=== PATIENT | female | born 1955 | race Caucasian/White ===

== ENCOUNTER 2020-10-04 16:33 | Inpatient (IN) | payer MEDICARE, OTHER ==
[2020-10-04] MEDS ORDERED: PROTONIX 40 MG IV IV ONE ×2 (18:11→18:16)
[2020-10-04] MEDS ORDERED: Sodium Chloride 0.9% 1000 ML 1,000 ML IV SCH (18:15)
[2020-10-04] MEDS ORDERED: Sodium Chloride 0.9% 1000 ML 1,000 ML ONE (18:16)
[2020-10-04 18:40] LABS: Absolute Neutrophil Ct (ANC) 4.37 (1.4-6.9); BASOPHIL % 0.4 % (0.0-0.4); Basophil (Absolute #) 0.03 (0-0.4); Eosinophil % 5.9 % (0.00-5.0); Eosinophil (Absolute #) 0.42 (0-0.5); Hematocrit 23.5 % (35-47); Hemoglobin 8.1 gm/dl (12.0-16.0); Lymphocyte (Absolute #) 2.02 (1.0-4.6); Lymphocytes % 28.3 % (24.0-44.0); Mean Corpuscular Hemoglobin 43.1 pg (26-32); Mean Corpuscular Hgb Concent. 34.5 g/dl (32-36); Mean Platelet Volume 10.5 fl (7.5-11.0); Monocyte (Absolute #) 0.29 (0.0-1.3); Monocytes % 4.1 % (0.0-12.0); Neutrophil % 61.3 % (36.0-66.0); Platelet Count 247 K/mm3 (150-450); Red Cell Distribution Width 16.8 % (11.5-14.0); White Blood Count 7.1 K/mm3 (4.0-10.5)
[2020-10-04 18:46] LABS: INR 1.17 (0.8-3.0); PROTIME 13.2 SECONDS (9.95-12.35); Red Blood Count 1.88 M/mm3 (4.1-5.4)
[2020-10-04 18:49] LABS: PTT 26.2 SECONDS (25.3-37.0)
--- NOTE | 2020-10-04 19:20 | ERPHSYRPT ---
- History of Present Illness Time Seen by Provider: 10/04/20 16:35 Source: patient Exam Limitations: no limitations Patient Subjective Stated Complaint: "I was told my blood levels are too low and that I need to go to the ER." Triage Nursing Assessment: Patient reported that she has been experiencing ongoing fatigue and "just not feeling well at all." Reported that she had labs drawn today and that she was told to immediately come to the ER due to low blood levels. Denied headache, dizziness, chest pain, shortness of breath, nausea/vomiting. She did report that she has intermittent diarreha which has been ongoing over the past year. Denied black/tarry stools. Pupils 3mm bilateral. Oral mucosa pink/moist. Symmetrical chest expansion. Heart tones S1/S2 regular rate and rhythm. Lungs vesicular with adequate airflow. Abdomen obese non-distended. Bowel sounds present in all quadrants. Abdomen non-tender without hepatosplenomegaly. No noted guarding/rebound tenderness. Peripheral pulses +2 bilateral. No noted dependent edema. Physician History: 65 years old female with history of hypertension, hypothyroidism, arthritis presented in the ER with low hemoglobin found on work-up done outpatient today. Patient reports she has been having generalized weakness fatigue and tiredness with no energy to do her routine activities for the last 2 weeks. Patient report occasionally she feels dizzy lightheaded and sometimes chest pain shortness of breath. Symptoms get better with resting. Reports having epigastric discomfort couple of weeks ago before all this started but denies any dark-colored stool. Denies history of acid reflux. Not taking any blood thinner. No vomiting but has loose stool for the last couple days but no blood in it. Timing/Duration: week(s) (2), gradual onset, worse Severity: moderate Modifying Factors: Improves With: rest. Worsens With: movement Associated Symptoms: abdominal pain, chest pain, headaches, weakness, other Allergies/Adverse Reactions: No Known Drug Allergies Allergy (Unverified 10/04/20 17:30) Home Medications: Aspirin 1 tab PO DAILY 10/04/20 [History] Biotin 1 tab PO DAILY 10/04/20 [History] Levothyroxine Sodium [Euthyrox] 1 tab PO DAILY 10/04/20 [History] Lisinopril/Hydrochlorothiazide [Lisinopril-Hctz 20-25 mg Tab] 1 tab PO DAILY 10/04/20 [History] Meloxicam 1 tab PO DAILY 10/04/20 [History] Hx Tetanus, Diphtheria Vaccination/Date Given: No Hx Influenza Vaccination/Date Given: Yes Hx Pneumococcal Vaccination/Date Given: No Travel Risk - International Travel Have you traveled outside of the country in past 3 weeks: No - Coronavirus Screening Are you exhibiting any of the following symptoms?: No Close contact with a COVID-19 positive Pt in past 14-21 Days: No - Vaccine Status Have you recieved a Covid-19 vaccination: Yes 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: [id number] - Vaccination Dates Date of 2cond Vaccination (if applicable): 07/17/20 - Review of Systems Constitutional: Fatigue Eyes: No Symptoms Ears, Nose, & Throat: No Symptoms Respiratory: Dyspnea Cardiac: Chest Pain, Palpitations Abdominal/Gastrointestinal: Abdominal Pain, Diarrhea Genitourinary Symptoms: No Symptoms Musculoskeletal: Arthralgias, Joint Pain Skin: No Symptoms Neurological: Dizziness Psychological: No Symptoms Endocrine: No Symptoms Hematologic/Lymphatic: No Symptoms Immunological/Allergic: No Symptoms All Other Systems: Reviewed and Negative - Past Medical History Pertinent Past Medical History: Yes Cardiac History: Hypertension Endocrine Medical History: Hypothyroidism Musculoskeletal History: Osteoarthritis - Past Surgical History Past Surgical History: Yes Female Surgical History: Tubal Ligation Other Surgical History: Breast reduction - Social History Smoking Status: Never smoker Exposure to second hand smoke: Yes Drug Use: none Patient Lives Alone: No - Female History Hx Now: No - Nursing Vital Signs Nursing Vital Signs: Initial Vital Signs Temperature 98.5 F 10/04/20 16:33 Respiratory Rate 16 10/04/20 16:33 Blood Pressure 150/81 10/04/20 16:33 Pain Scale Pain Intensity 0 - Physical Exam General Appearance: no apparent distress, alert Eye Exam: PERRL/EOMI, eyes nml inspection Ears, Nose, Throat Exam: normal ENT inspection, TMs normal, pharynx normal Neck Exam: normal inspection, non-tender, supple, full range of motion Respiratory Exam: normal breath sounds, lungs clear Cardiovascular Exam: regular rate/rhythm, normal heart sounds Gastrointestinal/Abdomen Exam: soft, normal bowel sounds, No tenderness Back Exam: normal inspection, normal range of motion Extremity Exam: normal inspection, normal range of motion Neurologic Exam: alert, oriented x 3, 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, 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, normal mood/affect Skin Exam: normal color SpO2 Interpretation: normal SpO2: 97 O2 Delivery: Room Air Ordered Tests: Active Orders 24 hr Category Date Time 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 10/04/20 18:12 Active IV Insertion STAT Care 10/04/20 18:11 Active CHEST 1 VIEW (PORTABLE) Stat Exams 10/04/20 18:16 Taken CBC W DIFF Stat Lab 10/04/20 18:30 Completed FECAL OCCULT BLOOD - SCREENING Stat Lab 10/04/20 18:12 Completed PROTIME WITH INR Stat Lab 10/04/20 18:30 Completed PTT Stat Lab 10/04/20 18:30 Completed Transfer Order Routine Transfer 10/04/20 Ordered Medication Summary Generic Name Dose Route Start Last Admin Trade Name Freq PRN Reason Stop Dose Admin Sodium Chloride 1,000 mls @ 100 mls/hr 10/04/20 18:15 10/04/20 18:16 Sodium Chloride 0.9% 1000 Ml IV 11/03/20 18:14 100 mls/hr .Q10H HARESH Administration Discontinued Medications Generic Name Dose Route Start Last Admin Trade Name Freq PRN Reason Stop Dose Admin Pantoprazole Sodium 40 mg 10/04/20 18:11 10/04/20 18:16 Protonix 40 Mg Iv IV 10/04/20 18:12 40 mg STAT ONE Administration Pantoprazole Sodium Confirm 10/04/20 18:16 Protonix 40 Mg Iv Administered 10/04/20 18:17 Dose 40 mg IV .[facility] ONE Lab/Rad Data: Laboratory Result Diagrams 10/04/20 18:30 Laboratory Results 10/04/20 10/04/20 10/04/20 Range/Units 18:30 18:30 18:12 WBC 7.1 (4.0-10.5) K/mm3 RBC 1.88 L* (4.1-5.4) M/mm3 Hgb 8.1 L (12.0-16.0) gm/dl Hct 23.5 L (35-47) % MCV 125.0 H (78-100) fl MCH 43.1 H (26-32) pg MCHC 34.5 (32-36) g/dl RDW 16.8 H (11.5-14.0) % Plt Count 247 (150-450) K/mm3 MPV 10.5 (7.5-11.0) fl Gran % 61.3 (36.0-66.0) % Eos # (Auto) 0.42 (0-0.5) Absolute Lymphs (auto) 2.02 (1.0-4.6) Absolute Monos (auto) 0.29 (0.0-1.3) Lymphocytes % 28.3 (24.0-44.0) % Monocytes % 4.1 (0.0-12.0) % Eosinophils % 5.9 H (0.00-5.0) % Basophils % 0.4 (0.0-0.4) % Absolute Granulocytes 4.37 (1.4-6.9) Basophils # 0.03 (0-0.4) PT 13.2 H (9.95-12.35) SECONDS INR 1.17 (0.8-3.0) APTT 26.2 (25.3-37.0) SECONDS Stool Occult Blood NEGATIVE (NEGATIVE) - Progress Progress: unchanged Progress Note: 10/04/20 19:21 I have repeated her hemoglobin which is 8.1 and earlier it was 7.6. But her baseline is around 11. It is a significant drop and patient is getting symptomatic because of blood loss anemia. I believe patient probably have gastric ulcer and GI related blood loss. Given Protonix and started on Protonix drip. Discussed with patient about this risk and benefits of transfusion in detail and she wants to go ahead with transfusion. She has a CT head done which is negative. Chest x-ray negative for any acute cardiopulmonary findings reviewed by me, official report pending. Discussed with Dr. Muir and patient is being admitted for blood transfusion. She needs further evaluation to find out the source of her blood loss. Discussed with : Santy Will see patient in: hospital (observation) Counseled pt/family regarding: lab results, diagnosis, rad results - Departure Departure Disposition: Observation Clinical Impression: Symptomatic anemia Condition: Stable Critical Care Time: No Referrals: MARCELO MALIK NP [Primary Care Provider] -
[2020-10-04 20:13] LABS: INFLUENZA A NEGATIVE (NEGATIVE); INFLUENZA B NEGATIVE (NEGATIVE); RESPIRATORY SYNCTIAL VIRUS NEGATIVE (Negative)
[2020-10-04 20:49] LABS: ABO TYPING A; Antibody Screen NEGATIVE (NEGATIVE); RH TYPING POSITIVE
[2020-10-04 20:52] LABS: CROSS MATCH (PRBC) COMPATIBLE (COMPATIBLE)
[2020-10-05] MEDS: Zofran 4 MG/2 ML VIAL IV PRN (05:11)
[2020-10-05] MEDS ORDERED: Sodium Chloride 0.9% 500 ML 500 ML IV ONE (05:20)
[2020-10-05] MEDS ORDERED: PROTONIX 40 MG IV IV ONE (05:20)
[2020-10-05] MEDS: PROTONIX 40 MG IV*** 80 MG in Sodium Chloride 0.9% 500 ML 500 ML IV SCH (05:35)
[2020-10-05 07:18] LABS: Absolute Neutrophil Ct (ANC) 2.64 (1.4-6.9); BASOPHIL % 0.6 % (0.0-0.4); Basophil (Absolute #) 0.03 (0-0.4); Eosinophil % 6.6 % (0.00-5.0); Eosinophil (Absolute #) 0.34 (0-0.5); Hematocrit 26.5 % (35-47); Hemoglobin 8.9 gm/dl (12.0-16.0); Lymphocyte (Absolute #) 1.86 (1.0-4.6); Lymphocytes % 36.3 % (24.0-44.0); Mean Cell Volume 111.3 fl (78-100); Mean Corpuscular Hemoglobin 37.4 pg (26-32); Mean Corpuscular Hgb Concent. 33.6 g/dl (32-36); Monocyte (Absolute #) 0.25 (0.0-1.3); Monocytes % 4.9 % (0.0-12.0); Neutrophil % 51.6 % (36.0-66.0); Platelet Count 187 K/mm3 (150-450); Red Blood Count 2.38 M/mm3 (4.1-5.4); White Blood Count 5.1 K/mm3 (4.0-10.5)
[2020-10-05 08:41] LABS: ALBUMIN 3.7 g/dL (3.5-5.0); ALKALINE PHOSPHATASE 54 U/L (38-126); ANION GAP 9.4 MEQ/L (5-15); BLOOD UREA NITROGEN 20 mg/dL (7-17); CHLORIDE 107 mmol/L (98-107); Carbon Dioxide 27 mmol/L (22-30); Creatinine 1 0.94 mg/dL (0.52-1.04); EST GLOMERULAR FILTRATION RATE > 60.0 ML/MIN; Glucose 90 mg/dL (74-106); Potassium 4.2 mmol/L (3.5-5.1); SGOT/AST 26 U/L (14-36); SGPT/ALT 16 U/L (0-35); SODIUM 139 mmol/L (137-145); Total Protein 6.5 g/dL (6.3-8.2)
--- NOTE | 2020-10-05 08:49 | XRAY ---
Indication: General weakness. Comparison: None Portable chest demonstrates normal heart and lungs. Bony thorax intact with mild degenerative changes.
[2020-10-05] MEDS ORDERED: Lasix 20 MG/2 ML IV PRN (09:38)
[2020-10-05] MEDS: Pepcid 20 MG VIAL IV SCH ×2 (10:15→21:14)
[2020-10-05] MEDS: SODIUM CHLORIDE 0.9% IV SCH (10:15)
[2020-10-05] MEDS: SANDOSTATIN IV SCH (10:15)
[2020-10-05] MEDS: SYNTHROID 100 MCG PO SCH ×2 (10:15→10:31)
[2020-10-05 10:35] LABS: Iron 209 ug/dL (37-170); Iron Saturation 71 % (20-39); TIBC 293 ug/dL (265-462)
[2020-10-05 11:06] LABS: CROSS MATCH (PRBC) COMPATIBLE (COMPATIBLE)
[2020-10-05 11:41] LABS: Ferritin 74.4 ng/mL (11.1-264); Folate (Folic Acid) > 20.0 ng/mL (2.76 - >20)
[2020-10-05 11:52] LABS: Vitamin B12 < 159 pg/mL (239-931)
[2020-10-05 12:18] LABS: Slide Review 1 YES
[2020-10-05] MEDS: Sodium Chloride 0.9% 500 ML 500 ML IV SCH (12:51)
--- NOTE | 2020-10-05 13:15 | XRAY ---
Indication: Abdomen pain. GI bleed. Conventional contrast enhanced CTA abdomen/pelvis performed using 80 cc Isovue 370 contrast. Two-dimensional sagittal and coronal reformatted images obtained. Additional 3-dimensional reformatted images obtained using a separate workstation. Comparison: None Abdominal aorta is normal in course and caliber with very minimal arteriosclerotic disease. Normal branching celiac, superior mesenteric, and inferior mesenteric arteries. Proximal celiac artery demonstrates focal greater than 50% narrowing favoring celiac artery compression syndrome, also known as median arcuate ligament syndrome. Remaining celiac, superior mesenteric, and inferior mesenteric arteries are normal in CTA appearance. There are 2 main renal arteries supplying each kidney without critical stenosis, obstruction, or AV malformation. Left kidney is mildly atrophic with anterior cortical thinning. Noncontrasted stomach and bowel loops appear nonobstructed. Normal appendix. Scattered colonic diverticulosis, greatest sigmoid colon. No free fluid/air. Remaining liver, gallbladder, pancreas, spleen, adrenal glands, kidneys, ureters, bladder, and uterus appear unremarkable. No pathologic retroperitoneal lymphadenopathy. Lung bases demonstrate bibasilar subsegmental atelectasis/scarring and small hiatal hernia. Heart is not enlarged. Osseous structures intact with mild degenerative changes throughout the thoracolumbar spine. Impression: 1. 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 2. Remaining CTA abdomen/pelvis negative. 3. Incidental small hiatal hernia, left renal atrophy/cortical thinning, colonic diverticulosis, and multilevel degenerative spondylosis.
[2020-10-05] MEDS ORDERED: Golytely Solution 4000 ML PO ONE (15:00)
[2020-10-05] MEDS: TYLENOL 325 MG PO PRN (15:17)
[2020-10-06] MEDS: SODIUM CHLORIDE 0.9% IV SCH ×2 (00:58→12:21)
[2020-10-06] MEDS: SANDOSTATIN IV SCH ×2 (00:58→12:21)
[2020-10-06] MEDS: TYLENOL 325 MG PO PRN ×2 (00:59→09:24)
[2020-10-06] MEDS: Zofran 4 MG/2 ML VIAL IV PRN ×2 (07:59→17:39)
--- NOTE | 2020-10-06 08:02 | CONS ---
CONSULT DATE: 10/05/2020 HISTORY: The patient presented to the hospital with anemia. She states that she had retained blood work per her kidney doctor. Hemoglobin was about 7 when she came in and red cells of 1. The patient states she has felt sick for the past week and complains of pain in the stomach to left upper quadrant area. States that she has had a headache. The patient denies any rectal bleeding, change in bowel habits or hematemesis. She reports that she had a colonoscopy about three years ago with Dr. Therese Poe. She denies history of EGD. She has been receiving blood at this time. She denies pain currently. PAST MEDICAL HISTORY: Hypertension, thyroid disease, arthritis. PAST SURGICAL HISTORY: Breast augmentation. Tubal ligation. ALLERGIES: NKDA. MEDICATIONS: Per chart. FAMILY HISTORY: Stroke, myocardial infarction, heart disease, non-Hodgkin's lymphoma, kidney cancer. SOCIAL HISTORY: Negative. REVIEW OF SYSTEMS: CONSTITUTIONAL: Denies fever or chills. CHEST: Denies shortness of breath. CVS: Denies chest pain. ABDOMEN: Reports left upper quadrant pain. Denies nausea, vomiting, diarrhea, constipation or rectal bleeding. INTEGUMENTARY: Negative. PHYSICAL EXAMINATION: GENERAL: No acute distress. CHEST: Nonlabored. No shortness of breath. CVS: Regular rate and rhythm. ABDOMEN: Soft, nondistended, tender to palpation in left upper quadrant. EXTREMITIES: No edema. NEUROLOGIC: Alert. PSYCHIATRIC: Appropriate. IMPRESSION: The patient is a 65 year-old female who presented to the hospital with anemia. She has denied any bleeding currently. It appears that her last colonoscopy was okay about three years ago. It looks like she had a CT scan showing some celiac artery stenosis that is not significant at this moment. We will plan on EGD and colonoscopy tomorrow with Dr. Riley Poe. She will get prepped today. She may have clear liquids and then NPO after midnight. Procedure and risks were discussed with the patient and she agrees to proceed. As dictated by Beverly Crystal NP.
[2020-10-06 09:45] LABS: Absolute Neutrophil Ct (ANC) 3.39 (1.4-6.9); Basophil (Absolute #) 0.05 (0-0.4); Eosinophil % 4.5 % (0.00-5.0); Eosinophil (Absolute #) 0.23 (0-0.5); Hematocrit 32.8 % (35-47); Hemoglobin 11.1 gm/dl (12.0-16.0); Lymphocyte (Absolute #) 1.18 (1.0-4.6); Lymphocytes % 23.3 % (24.0-44.0); Mean Cell Volume 102.8 fl (78-100); Mean Corpuscular Hemoglobin 34.8 pg (26-32); Mean Corpuscular Hgb Concent. 33.8 g/dl (32-36); Mean Platelet Volume 10.4 fl (7.5-11.0); Monocyte (Absolute #) 0.21 (0.0-1.3); Monocytes % 4.2 % (0.0-12.0); Platelet Count 190 K/mm3 (150-450); Red Blood Count 3.19 M/mm3 (4.1-5.4); White Blood Count 5.1 K/mm3 (4.0-10.5)
[2020-10-06 09:54] LABS: ALBUMIN 4.2 g/dL (3.5-5.0); ANION GAP 13.4 MEQ/L (5-15); BILIRUBIN,TOTAL 1.1 mg/dL (0.2-1.3); Calcium 9.4 mg/dL (8.4-10.2); EST GLOMERULAR FILTRATION RATE 59.1 ML/MIN; Potassium 4.7 mmol/L (3.5-5.1); Total Protein 7.1 g/dL (6.3-8.2)
[2020-10-06] MEDS: Pepcid 20 MG VIAL IV SCH ×2 (10:10→21:13)
[2020-10-06] MEDS: SYNTHROID 100 MCG PO SCH (10:10)
[2020-10-06] MEDS: PROTONIX 40 MG IV*** 80 MG in Sodium Chloride 0.9% 500 ML 500 ML IV SCH (12:21)
[2020-10-06] MEDS ORDERED: Lactated Ringers 1,000 ML IV SCH (15:00)
[2020-10-06] MEDS ORDERED: DIPRIVAN 200 MG/20 ML IV ONE ×2 (18:25→18:36)
--- NOTE | 2020-10-06 21:05 | PCM.NOTE ---
Date and Time: 10/06/202104 OBJECTIVE DATA Vital Signs: Vital Signs - 24 hr Temp Pulse Resp BP Pulse Ox 10/06/20 20:45 98.2 F 44 L 18 144/63 97 10/06/20 20:15 43 L 162/70 10/06/20 19:45 42 L 16 143/65 98 10/06/20 19:30 97.4 F 44 L 18 129/60 98 10/06/20 16:00 98.9 F 48 L 18 173/72 96 10/06/20 11:54 97.5 F 45 L 14 136/64 95 10/06/20 11:43 97.4 F 47 L 16 118/56 94 L 10/06/20 08:00 97.4 F 47 L 16 118/56 94 L 10/06/20 04:00 97.5 F 52 L 16 97/53 92 L 10/06/20 00:00 97.5 F 54 L 18 110/53 95 Pain Assessment - Last Documented Pain Intensity 0 Pain Scale Used 0-10 Pain Scale Intake and Output: Intake & Output 10/04/20 10/05/20 10/06/20 10/07/20 11:59 11:59 11:59 11:59 Intake Total 932 4819 526 Balance 932 8799 526 Weight 105.4 kg 105.4 kg Lab Results: Lab Results-Last 24 Hours 10/05/20 10/06/20 10/06/20 Range/Units 07:00 09:35 09:35 WBC 5.1 (4.0-10.5) K/mm3 RBC 3.19 L (4.1-5.4) M/mm3 Hgb 11.1 L D (12.0-16.0) gm/dl Hct 32.8 L (35-47) % MCV 102.8 H D (78-100) fl MCH 34.8 H (26-32) pg MCHC 33.8 (32-36) g/dl RDW 28.0 H (11.5-14.0) % Plt Count 190 (150-450) K/mm3 MPV 10.4 (7.5-11.0) fl Gran % 67.0 H (36.0-66.0) % Eos # (Auto) 0.23 (0-0.5) Absolute Lymphs (auto) 1.18 (1.0-4.6) Absolute Monos (auto) 0.21 (0.0-1.3) Lymphocytes % 23.3 L (24.0-44.0) % Monocytes % 4.2 (0.0-12.0) % Eosinophils % 4.5 (0.00-5.0) % Basophils % 1.0 (0.0-0.4) % Absolute Granulocytes 3.39 (1.4-6.9) Basophils # 0.05 (0-0.4) Percent Retic 2.0 (0.6-2.6) % Sodium 140 (137-145) mmol/L Potassium 4.7 (3.5-5.1) mmol/L Chloride 104 (98-107) mmol/L Carbon Dioxide 27 (22-30) mmol/L Anion Gap 13.4 (5-15) MEQ/L BUN 21 H (7-17) mg/dL Creatinine 1.00 (0.52-1.04) mg/dL Estimated GFR 59.1 ML/MIN Glucose 118 H (74-106) mg/dL Calcium 9.4 (8.4-10.2) mg/dL Total Bilirubin 1.10 (0.2-1.3) mg/dL AST 39 H (14-36) U/L ALT 23 (0-35) U/L Alkaline Phosphatase 55 (38-126) U/L Serum Total Protein 7.1 (6.3-8.2) g/dL Albumin 4.2 (3.5-5.0) g/dL Radiology Exams: Radiology Procedures Category Date Time Status CTA ABD/PEL W AND/OR W/O CONTR [CT] Routine Exams 10/05/20 10:00 Completed Multi-Disciplinary Progress Notes: Multi-Disciplinary Progress Notes 10/06/20 09:59 Case Management Note by Madhavi Scherer SPOKE WITH PATIENT AND IN ROOM. PT GOING FOR EGD/COLONOSCOPY TODAY, NO NEW NEEDS AT THIS TIME, WILL CONTINUE TO FOLLOW APPROPRIATE. Initialized on 10/06/20 09:59 - END OF NOTE
[2020-10-06] MEDS: Carafate 1 GM PO SCH (21:12)
[2020-10-07] MEDS: Carafate 1 GM PO SCH (07:55)
[2020-10-07] MEDS: Sodium Chloride 0.9% 500 ML 500 ML IV SCH (09:47)
[2020-10-07] MEDS: SYNTHROID 100 MCG PO SCH (09:48)
[2020-10-07] MEDS: Pepcid 20 MG VIAL IV SCH (09:49)
--- NOTE | 2020-10-07 10:37 | PCM.DS ---
Discharge Summary Date of Admission: 10/05/20 09:40 Admitting Physician: KRYSTINA OLMSTEAD MD Consults: Consults on Case 10/05/20 10:00 Consult Surgery ROUTINE Primary Care Provider: MARCELO MALIK NP Allergies Allergies No Known Drug Allergies Allergy (Unverified 10/04/20 17:30) Hospital Summary - Vitals & Intake/Output Vital Signs: Vital Signs Temperature 98.4 F 10/07/20 07:43 Pulse Rate 48 L 10/07/20 07:43 Respiratory Rate 16 10/07/20 07:43 Blood Pressure 126/62 10/07/20 07:43 O2 Sat by Pulse Oximetry 92 L 10/07/20 07:43 Intake & Output: Intake & Output 10/04/20 10/05/20 10/06/20 10/07/20 11:59 11:59 11:59 11:59 Intake Total 932 2479 1121 Balance 932 2479 1121 Weight 105.4 kg 105.4 kg - Lab Result Diagrams: 10/07/20 10:27 10/06/20 09:35 - Radiology Exams Ordered Rad Exams-Entire Visit: Radiology Procedures Category Date Time Status CTA ABD/PEL W AND/OR W/O CONTR [CT] Routine Exams 10/05/20 10:00 Completed Final Diagnosis/Problem List - Final Discharge Diagnosis/Problem (1) Anemia due to GI blood loss Status: Acute Code(s): D50.0 - IRON DEFICIENCY ANEMIA SECONDARY TO BLOOD LOSS (CHRONIC) (2) Hypertension Status: Acute Code(s): I10 - ESSENTIAL (PRIMARY) HYPERTENSION (3) Hypothyroidism Status: Acute Code(s): E03.9 - HYPOTHYROIDISM, UNSPECIFIED - Discharge Disposition: Home, Self-Care Condition: Stable Prescriptions: New Docusate Sodium 100 mg [Colace 100 MG] 100 mg PO DAILY #30 cap Ferrous Sulfate 325 mg [Feosol 325 mg] 2 tab PO DAILY #30 tablet Continue Lisinopril/Hydrochlorothiazide [Lisinopril-Hctz 20-25 mg Tab] 1 tab PO DAILY Levothyroxine Sodium [Euthyrox] 1 tab PO DAILY Biotin 1 tab PO DAILY Aspirin 1 tab PO DAILY Discontinued Meloxicam 1 tab PO DAILY Instructions: Ferrous Sulfate Additional Instructions: FOLLOW UP WITH YOUR PRIMARY CARE PHYSICIAN HOLD MELOXICAM UNTIL FOLLOW UP Follow up with: KRYSTINA OLMSTEAD MD [ACTIVE STAFF] - CARTER MYERS [CONSULTING PHYSICIAN] - 10/10/20 3:10 pm (at [facility] ) SERGEY BENTON [ACTIVE STAFF] -
[2020-10-07 10:55] LABS: Hematocrit 32.5 % (35-47); Mean Cell Volume 104.2 fl (78-100); Mean Corpuscular Hemoglobin 35.3 pg (26-32); Mean Corpuscular Hgb Concent. 33.8 g/dl (32-36); Mean Platelet Volume 10.6 fl (7.5-11.0); Platelet Count 204 K/mm3 (150-450); Red Blood Count 3.12 M/mm3 (4.1-5.4); Red Cell Distribution Width 26.7 % (11.5-14.0); White Blood Count 6.5 K/mm3 (4.0-10.5)
[2020-10-07 12:48] LABS: Slide Review YES
[2020-10-07 13:52] VITALS: BP 149/69; PULSE 49; O2SAT 93
--- NOTE | 2020-10-09 15:58 | OP ---
SURGERY DATE/TIME: 10/07/2020 1820 PREOPERATIVE DIAGNOSIS: GI bleed. POSTOPERATIVE DIAGNOSES: 1) Healing posterior wall pyloric channel ulcer with recent significant bleeding although nearly healed at this time. 2) Colonoscopy complete to cecum with severe sigmoid and left colon diverticulosis with no signs of bleeding. SURGEON: Riley Poe M.D. ANESTHESIA: MAC. COMPLICATIONS: None. CONDITION: Stable. INDICATION: A patient requiring procedure with bleeding, was getting blood transfusion and had stabilized. DESCRIPTION OF PROCEDURE: Taken to endoscopy. Left lateral decubitus position. Pharyngoesophageal junction normal. Esophagus normal. Gastroesophageal junction normal. Fundus, body and antrum normal. 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 There was a channel ulcer on the posterior greater curvature surface that was elliptical and was healing and it was right in the channel. It looked like it had been a very significant ulcer but it was not bleeding now and certainly is about healed. Duodenum was normal. Second portion duodenum normal. The scope was withdrawn. Keyhole view normal. Scope looped upon itself. No hiatal hernia. Scope withdrawn. Anal digital examination satisfactory. Severe diverticulosis numbering in the 100's, very large pouches. It was navigated. The descending, transverse, ascending, base of the cecum, ileocecal valve and appendiceal orifice was normal. Circumferential withdrawal was normal. No blood on the lower exam. She was due for lower examination coming up this month. She is caught up on this now. Her care per her primary care physician.
== END 2020-10-07 12:20 | disposition home or self-care (01) | DRG 811 ==
LOC: ED 16:33 → MED SURG 20:26 → OBSVTOIN 10-05 09:40
PROVIDERS: ADMIT Family Medicine; ATTEND Family Medicine
PROC: 0DJ08ZZ Inspection of Upper Intestinal Tract, Via Natural or Artificial Opening Endoscopic (ICD-10-PCS; principal; 2020-10-07)
PROC: 0DJD8ZZ Inspection of Lower Intestinal Tract, Via Natural or Artificial Opening Endoscopic (ICD-10-PCS; 2020-10-07)
DX: D50.0 Iron deficiency anemia secondary to blood loss (chronic) (principal); K25.4 Chronic or unspecified gastric ulcer with hemorrhage; R51.9 Headache, unspecified; K57.30 Diverticulosis of large intestine without perforation or abscess without bleeding; Z79.899 Other long term (current) drug therapy; Z20.828 Contact with and (suspected) exposure to other viral communicable diseases; I10 Essential (primary) hypertension; E03.9 Hypothyroidism, unspecified
CPT/HCPCS: 0241U; 36000; 36415; 36430; 43235; 45378; 70450; 71045; 74174; 80053; 82607; 82728; 82746; 83540; 83550; 83735; 85025; 85027; 85045; 85610; 85730; 86850; 86900; 86901; 86922; 93041; 93306; 96374; 99285; G0328; G0378; P9016; 82274; J1940; J2354; J2405; J2704; A9270-GY

== ENCOUNTER 2022-11-04 08:36 | Emergency (ER) | payer MEDICARE, OTHER ==
[2022-11-04] MEDS ORDERED: BABY ASPIRIN 81 MG CHEW PO ONE (08:42)
[2022-11-04] MEDS ORDERED: MORPHINE SULFATE 2 MG INJ IV ONE (08:42)
[2022-11-04] MEDS ORDERED: Nitrostat 0.4 MG (ED) SL ONE ×2 (08:42→08:51)
[2022-11-04] MEDS ORDERED: Sodium Chloride 0.9% 1000 ML 1,000 ML IV SCH (08:45)
[2022-11-04] MEDS ORDERED: BABY ASPIRIN 81 MG CHEW ONE (08:51)
[2022-11-04] MEDS ORDERED: MORPHINE SULFATE 2 MG INJ ONE (08:51)
[2022-11-04] MEDS ORDERED: Sodium Chloride 0.9% 1000 ML 1,000 ML ONE (08:51)
--- NOTE | 2022-11-04 08:56 | ERPHSYRPT ---
- History of Present Illness Time Seen by Provider: 11/04/22 08:40 Historian: patient Exam Limitations: no limitations Patient Subjective Stated Complaint: PT states "I started to have pain yesterday in my chest and through the night the pain went up into my neck on both sides and into my back." Triage Nursing Assessment: Pt presented alert and oriented X 3, skin pwd. Pt ambulates with an upright steady gait, able to speak in clear full sentences. Pt slightly tachypneic. PT resting comfortably on the bed. Physician History: Patient is a 67-year-old white female who presents with a complaint of chest pain chest pain started yesterday got worse through the night radiated to her neck and through to her back. She became somewhat anxious she states with the pain and slightly short of breath she rates her pain 6 of 10 she has no history of cardiac problems risk factors do however include a strong family history and hypertension. She is negative for diabetes she is not a smoker and her cholesterol is normal. Timing/Duration: yesterday Activities at Onset: none Quality: pressure, stabbing Location: substernal Chest Pain Radiation: jaw, neck, back Severity of Pain-Max: moderate Severity of Pain-Current: moderate Modifying Factors: Improves With: nothing Associated Symptoms: shortness of breath Prior Chest Pain/Cardiac Workup: no prior chest pain Nitro Today/Relief: 0.4 mg x 1, provided by ED Aspirin Treatment Today: 81 mg x 3, provided by ED Allergies/Adverse Reactions: No Known Drug Allergies Allergy (Verified 11/04/22 08:42) Home Medications: Aspirin 1 tab PO DAILY 10/04/20 [History] Biotin 1 tab PO DAILY 10/04/20 [History] Levothyroxine Sodium [Euthyrox] 1 tab PO DAILY 10/04/20 [History] Amoxicillin/Potassium Clav [Amox Tr-K Clv 875-125 mg Tab] 1 each PO BID 11/04/22 [History] Ferrous Sulfate, Dried [Iron] 65 mg PO DAILY 11/04/22 [History] Ropinirole HCl 0.25 mg PO DAILY PRN 11/04/22 [History] lisinopriL [Zestril] 30 mg PO DAILY 11/04/22 [History] Hx Tetanus, Diphtheria Vaccination/Date Given: No Hx Influenza Vaccination/Date Given: Yes Hx Pneumococcal Vaccination/Date Given: Yes Immunizations Up to Date: Yes Travel Risk - International Travel Have you traveled outside of the country in past 3 weeks: No - Coronavirus Screening Are you exhibiting any of the following symptoms?: No Close contact with a COVID-19 positive Pt in past 14-21 Days: No - Vaccine Status Have you recieved a Covid-19 vaccination: Yes Rod Tape Operator: Moderna - Vaccination Dates Date of 2cond Vaccination (if applicable): 07/17/20 - Review of Systems Constitutional: No Fever, No Chills Eyes: No Symptoms Ears, Nose, & Throat: No Symptoms Respiratory: No Cough, No Dyspnea Cardiac: Chest Pain, No Edema, No Syncope Abdominal/Gastrointestinal: No Abdominal Pain, No Nausea, No Vomiting, No Diarrhea Genitourinary Symptoms: No Dysuria Musculoskeletal: No Back Pain, No Neck Pain Skin: No Rash Neurological: No Dizziness, No Focal Weakness, No Sensory Changes Psychological: No Symptoms Endocrine: No Symptoms All Other Systems: Reviewed and Negative - Past Medical History Pertinent Past Medical History: Yes Neurological History: No Pertinent History ENT History: No Pertinent History Cardiac History: Hypertension Respiratory History: No Pertinent History Endocrine Medical History: Hypothyroidism Musculoskeletal History: Osteoarthritis GI Medical History: No Pertinent History History: No Pertinent History Psycho-Social History: No Pertinent History Female Reproductive Disorders: No Pertinent History - Past Surgical History Past Surgical History: Yes Neuro Surgical History: No Pertinent History Cardiac: No Pertinent History Respiratory: No Pertinent History Gastrointestinal: No Pertinent History Genitourinary: No Pertinent History Musculoskeletal: No Pertinent History Female Surgical History: Tubal Ligation Other Surgical History: Breast reduction - Social History Smoking Status: Former smoker Exposure to second hand smoke: Yes Drug Use: none Patient Lives Alone: No - Nursing Vital Signs Nursing Vital Signs: Initial Vital Signs Temperature 98.1 F 11/04/22 08:36 Pulse Rate 85 11/04/22 08:36 Respiratory Rate 20 11/04/22 08:36 Blood Pressure 134/88 11/04/22 08:36 O2 Sat by Pulse Oximetry 98 11/04/22 08:36 Pain Scale Pain Intensity 5 - Physical Exam General Appearance: mild distress, alert Eye Exam: PERRL/EOMI, eyes nml inspection Ears, Nose, Throat Exam: normal ENT inspection, moist mucous membranes Neck Exam: normal inspection, non-tender, supple, full range of motion Respiratory Exam: normal breath sounds, lungs clear, No respiratory distress Cardiovascular Exam: regular rate/rhythm, normal heart sounds Gastrointestinal/Abdomen Exam: soft, No tenderness, No mass Back Exam: normal inspection, No CVA tenderness, No vertebral tenderness Extremity Exam: normal inspection, normal range of motion Neurologic Exam: alert, oriented x 3, cooperative, normal mood/affect, sensation nml, No motor deficits Skin Exam: normal color, warm, dry SpO2: 98 - Course Nursing assessment & vital signs reviewed: Yes EKG Interpreted by Me: RATE (83), Sinus Rhythm, NORMAL AXIS, NORMAL INTERVALS, NORMAL QRS, Non-specific ST Changes - Radiology Exams Chest X-ray Interpretation: Reviewed by me, Negative Ordered Tests: Active Orders 24 hr Category Date Time Status Outbound Sales Professional STAT Care 11/04/22 08:43 Active EKG-ER Only STAT Care 11/04/22 08:42 Active IV Insertion STAT Care 11/04/22 08:42 Active CHEST 1 VIEW (PORTABLE) Stat Exams 11/04/22 08:43 Completed CBC Q48H Lab 11/05/22 06:00 Ordered CBC Q48H Lab 11/07/22 06:00 Ordered CBC Q48H Lab 11/09/22 06:00 Ordered CBC Q48H Lab 11/11/22 06:00 Ordered CBC Q48H Lab 11/13/22 06:00 Ordered CBC Q48H Lab 11/15/22 06:00 Ordered CBC Q48H Lab 11/17/22 06:00 Ordered CBC Stat Lab 11/04/22 10:12 Ordered CBC W DIFF Stat Lab 11/04/22 09:00 Completed CK-Creatinine Phosphokinase Stat Lab 11/04/22 09:00 Completed CMP Stat Lab 11/04/22 09:00 Completed D-DIMER QUANTITATIVE Stat Lab 11/04/22 09:00 Completed NT PRO BNPII Stat Lab 11/04/22 09:00 Completed PROTIME WITH INR Stat Lab 11/04/22 09:00 Completed PROTIME WITH INR Stat Lab 11/04/22 10:12 Ordered PTT Q4H Lab 11/04/22 10:15 Ordered PTT Q4H Lab 11/04/22 14:15 Ordered PTT Q4H Lab 11/04/22 18:15 Ordered PTT Q4H Lab 11/04/22 22:15 Ordered PTT Q4H Lab 11/05/22 02:15 Ordered PTT Q4H Lab 11/05/22 06:15 Ordered PTT Q4H Lab 11/05/22 10:15 Ordered PTT Q4H Lab 11/05/22 14:15 Ordered PTT Q4H Lab 11/05/22 18:15 Ordered PTT Q4H Lab 11/05/22 22:15 Ordered PTT Q4H Lab 11/06/22 02:15 Ordered PTT Q4H Lab 11/06/22 06:15 Ordered PTT Stat Lab 11/04/22 09:00 Completed PTT Stat Lab 11/04/22 10:12 Ordered TROPONIN Q4H Lab 11/04/22 09:00 Completed TROPONIN Q4H Lab 11/04/22 12:45 Ordered TROPONIN Q4H Lab 11/04/22 16:45 Ordered UA W/RFX UR CULTURE Stat Lab 11/04/22 08:46 Ordered Medication Summary Generic Name Dose Route Start Last Admin Trade Name Freq PRN Reason Stop Dose Admin Sodium Chloride 1,000 mls @ 100 mls/hr 11/04/22 08:45 11/04/22 08:52 Sodium Chloride 0.9% 1000 Ml IV 12/04/22 08:44 100 mls/hr .Q10H HARESH Administration Heparin Sodium/Dextrose 25,000 units in 250 mls @ 13.32 mls/hr 11/04/22 10:30 Heparin 25,000 Units/D5w: Use Order Set Colby IV 12/04/22 10:29 .[id number] HARESH Protocol 12 UNITS/KG/HR Discontinued Medications Generic Name Dose Route Start Last Admin Trade Name Freq PRN Reason Stop Dose Admin Aspirin 243 mg 11/04/22 08:42 11/04/22 08:52 Aspirin 81 Mg Tab.Chew PO 11/04/22 08:43 243 mg STAT ONE Administration Aspirin Confirm 11/04/22 08:51 Aspirin 81 Mg Tab.Chew Administered 11/04/22 08:52 Dose 324 mg .ROUTE .STK-MED ONE Heparin Sodium (Beef Lung) 5,000 unit 11/04/22 10:12 Heparin 5000 Units/0.5 Ml 5,000 Unit/0.5 Ml Syr IV 11/04/22 10:13 STAT STA Morphine Sulfate 2 mg 11/04/22 08:42 11/04/22 08:53 Morphine Sulfate 2 Mg/Ml Inj IV 11/04/22 08:43 2 mg STAT ONE Administration Morphine Sulfate Confirm 11/04/22 08:51 Morphine Sulfate 2 Mg/Ml Inj Administered 11/04/22 08:52 Dose 2 mg .ROUTE .STK-MED ONE Nitroglycerin 0.4 mg 11/04/22 08:42 11/04/22 08:53 Nitroglycerin 0.4 Mg (Ed) 0.4 Mg Tab.Subl SL 11/04/22 08:43 0.4 mg STAT ONE Administration Nitroglycerin Confirm 11/04/22 08:51 Nitroglycerin 0.4 Mg (Ed) 0.4 Mg Tab.Subl Administered 11/04/22 08:52 Dose 0.4 mg SL .STK-MED ONE Lab/Rad Data: Laboratory Result Diagrams 11/04/22 09:00 11/04/22 09:00 Laboratory Results 11/04/22 11/04/22 11/04/22 Range/Units 09:00 09:00 09:00 WBC (4.0-10.5) x10^3/uL RBC (4.1-5.4) x10^6/uL Hgb (12.0-16.0) g/dL Hct (35-47) % MCV (78-100) fL MCH (26-32) pg MCHC (32-36) g/dL RDW (11.5-14.0) % Plt Count (150-450) x10^3/uL MPV (7.5-11.0) fL Gran % (36.0-66.0) % Immature Gran % (Auto) (0.00-0.4) % Nucleat RBC Rel Count (0.00-0.1) % Eos # (Auto) (0-0.5) x10^3/uL Immature Gran # (Auto) (0.00-0.03) x10^3u/L Absolute Lymphs (auto) (1.0-4.6) x10^3/uL Absolute Monos (auto) (0.0-1.3) x10^3/uL Absolute Nucleated RBC (0.00-0.01) x10^3u/L Lymphocytes % (24.0-44.0) % Monocytes % (0.0-12.0) % Eosinophils % (0.00-5.0) % Basophils % (0.0-0.4) % Absolute Granulocytes (1.4-6.9) x10^3/uL Basophils # (0-0.4) x10^3/uL PT 10.5 (9.4-12.5) SECONDS INR 0.96 (0.8-3.0) APTT 26.8 (25.1-36.5) SECONDS D-Dimer 0.74 H* (0.0-0.50) mg/L Sodium 140 (137-145) mmol/L Potassium 3.8 (3.5-5.1) mmol/L Chloride 102 (98-107) mmol/L Carbon Dioxide 26 (22-30) mmol/L Anion Gap 16.2 H (5-15) MEQ/L BUN 17 (7-17) mg/dL Creatinine 0.92 (0.52-1.04) mg/dL Estimated GFR > 60.0 ML/MIN Glucose 88 (74-106) mg/dL Calcium 9.4 (8.4-10.2) mg/dL Total Bilirubin 0.50 (0.2-1.3) mg/dL AST 33 (14-36) U/L ALT 23 (0-35) U/L Alkaline Phosphatase 62 (38-126) U/L Creatine Kinase 122 (30-135) U/L Troponin I 0.075 H* (0.000-0.034) ng/mL NT-Pro-B Natriuret Pep 62.4 (<300) pg/mL Serum Total Protein 8.5 H (6.3-8.2) g/dL Albumin 4.5 (3.5-5.0) g/dL 11/04/22 Range/Units 09:00 WBC 8.2 (4.0-10.5) x10^3/uL RBC 4.73 (4.1-5.4) x10^6/uL Hgb 14.1 (12.0-16.0) g/dL Hct 43.3 (35-47) % MCV 91.5 (78-100) fL MCH 29.8 (26-32) pg MCHC 32.6 (32-36) g/dL RDW 12.3 (11.5-14.0) % Plt Count 267 (150-450) x10^3/uL MPV 10.5 (7.5-11.0) fL Gran % 70.7 H (36.0-66.0) % Immature Gran % (Auto) 0.2 (0.00-0.4) % Nucleat RBC Rel Count 0.0 (0.00-0.1) % Eos # (Auto) 0.12 (0-0.5) x10^3/uL Immature Gran # (Auto) 0.02 (0.00-0.03) x10^3u/L Absolute Lymphs (auto) 1.34 (1.0-4.6) x10^3/uL Absolute Monos (auto) 0.84 (0.0-1.3) x10^3/uL Absolute Nucleated RBC 0.00 (0.00-0.01) x10^3u/L Lymphocytes % 16.4 L (24.0-44.0) % Monocytes % 10.3 (0.0-12.0) % Eosinophils % 1.5 (0.00-5.0) % Basophils % 0.9 (0.0-0.4) % Absolute Granulocytes 5.79 (1.4-6.9) x10^3/uL Basophils # 0.07 (0-0.4) x10^3/uL PT (9.4-12.5) SECONDS INR (0.8-3.0) APTT (25.1-36.5) SECONDS D-Dimer (0.0-0.50) mg/L Sodium (137-145) mmol/L Potassium (3.5-5.1) mmol/L Chloride (98-107) mmol/L Carbon Dioxide (22-30) mmol/L Anion Gap (5-15) MEQ/L BUN (7-17) mg/dL Creatinine (0.52-1.04) mg/dL Estimated GFR ML/MIN Glucose (74-106) mg/dL Calcium (8.4-10.2) mg/dL Total Bilirubin (0.2-1.3) mg/dL AST (14-36) U/L ALT (0-35) U/L Alkaline Phosphatase (38-126) U/L Creatine Kinase (30-135) U/L Troponin I (0.000-0.034) ng/mL NT-Pro-B Natriuret Pep (<300) pg/mL Serum Total Protein (6.3-8.2) g/dL Albumin (3.5-5.0) g/dL - Progress Progress: unchanged Air Movement: good Blood Culture(s) Obtained: No Antibiotics given: No Medical Desision Making - Discussion of managment Care discussed with:: specialist (Dr. Kingsley payan [facility]) Reviewed:: Test results Agreed on:: Treatment plan, decision to admit Will see patient: in hospital - Diagnostic Testing Diagnostic test were ordered, analyzed, and reviewed by me: Yes Radiological Interpretation: Reviewed by me - Risk of complications The pt has a high risk of morbidity or mortality based on: Drug therapy requiring intensive monitoring for toxicity, Decision regarding hospitilization or escalation of hosp level of care - Departure Departure Disposition: Transfer (Patient was transferred to [facility] in [place] Dr. Kingsley payan accepting) Clinical Impression: NSTEMI (non-ST elevated myocardial infarction) Condition: Serious Critical Care Time: Yes Critical Care Time(excluding separately billable procedures): Critical 30-74 mins (20 minutes) Referrals: MARCELO MALIK BUSINESS ADMINISTRATION TEACHER [Primary Care Provider] - Follow up/PCP as directed
--- NOTE | 2022-11-04 09:12 | XRAY ---
Indication: Chest pain. Comparison: October 04, 2020 Portable chest again demonstrates normal heart and lungs. Bony thorax intact again with osteopenia and mild degenerative changes. No new/acute findings.
[2022-11-04 09:18] LABS: Absolute Neutrophil Ct (ANC) 5.79 x10^3/uL (1.4-6.9); BASOPHIL % 0.9 % (0.0-0.4); Basophil (Absolute #) 0.07 x10^3/uL (0-0.4); Eosinophil % 1.5 % (0.00-5.0); Eosinophil (Absolute #) 0.12 x10^3/uL (0-0.5); Hematocrit 43.3 % (35-47); Hemoglobin 14.1 g/dL (12.0-16.0); IMMATURE GRAN # 0.02 x10^3u/L (0.00-0.03); IMMATURE GRAN % 0.2 % (0.00-0.4); Lymphocyte (Absolute #) 1.34 x10^3/uL (1.0-4.6); Lymphocytes % 16.4 % (24.0-44.0); Mean Cell Volume 91.5 fL (78-100); Mean Corpuscular Hemoglobin 29.8 pg (26-32); Mean Corpuscular Hgb Concent. 32.6 g/dL (32-36); Mean Platelet Volume 10.5 fL (7.5-11.0); Monocyte (Absolute #) 0.84 x10^3/uL (0.0-1.3); Monocytes % 10.3 % (0.0-12.0); Neutrophil % 70.7 % (36.0-66.0); Platelet Count 267 x10^3/uL (150-450); Red Blood Count 4.73 x10^6/uL (4.1-5.4); Red Cell Distribution Width 12.3 % (11.5-14.0); White Blood Count 8.2 x10^3/uL (4.0-10.5)
[2022-11-04 09:32] LABS: ALBUMIN 4.5 g/dL (3.5-5.0); ALKALINE PHOSPHATASE 62 U/L (38-126); ANION GAP 16.2 MEQ/L (5-15); BLOOD UREA NITROGEN 17 mg/dL (7-17); CHLORIDE 102 mmol/L (98-107); CK-Creatinine Phosphokinase 122 U/L (30-135); Calcium 9.4 mg/dL (8.4-10.2); Carbon Dioxide 26 mmol/L (22-30); Creatinine 1 0.92 mg/dL (0.52-1.04); EST GLOMERULAR FILTRATION RATE > 60.0 ML/MIN; Glucose 88 mg/dL (74-106); Potassium 3.8 mmol/L (3.5-5.1); SGOT/AST 33 U/L (14-36); SGPT/ALT 23 U/L (0-35); SODIUM 140 mmol/L (137-145); Total Protein 8.5 g/dL (6.3-8.2)
[2022-11-04 09:43] LABS: NT PRO BNPII 62.4 pg/mL (<300)
[2022-11-04 09:46] LABS: INR 0.96 (0.8-3.0); PROTIME 10.5 SECONDS (9.4-12.5); PTT 26.8 SECONDS (25.1-36.5)
[2022-11-04 09:47] LABS: D-DIMER QUANTITATIVE 0.74 mg/L (0.0-0.50)
[2022-11-04] MEDS ORDERED: HEPARIN 5000 UNITS/0.5 ML (HIGH RISK MED) IV STA (10:12)
[2022-11-04] MEDS ORDERED: HEPARIN 5000 UNITS/0.5 ML (HIGH RISK MED) ONE (10:23)
[2022-11-04] MEDS ORDERED: Heparin 25,000 units/D5W: USE ORDER SET PROTO 25,000 UNITS/250 ML BAG IV SCH (10:30)
[2022-11-04 10:31] LABS: TROPONIN < 0.012 ng/mL (0.000-0.034)
[2022-11-04 12:15] LABS: ADD URINE CULTURE? NO (NO); Appearance Clear (Clear); Bacteria None Seen /HPF (None Seen); Bilirubin Negative (Negative); Blood Negative (Negative); Epithelial Cells Few /HPF (None Seen); Glucose, Urine Negative (Negative); Hyaline Casts NONE SEEN /LPF (0-2); Ketones Negative (Negative); Leukocyte Esterase Trace (Negative); Nitrite Negative (Negative); Ph 5.5 (4.6-8.0); Protein,Urine Dip Negative (Negative); RBC 0-2 /HPF (0-5); Specific Gravity 1.015 (1.005-1.030); Urobilinogen 0.2 mg/dL (0.2); WBC 0-2 /HPF (0-5)
[2022-11-04 12:54] VITALS: BP 135/107; PULSE 69; O2SAT 91
== END 2022-11-04 13:13 | disposition short-term general hospital (02) ==
LOC: ED 08:36
DX: I21.4 Non-ST elevation (NSTEMI) myocardial infarction (principal); R07.9 Chest pain, unspecified; R06.02 Shortness of breath; I10 Essential (primary) hypertension; Z79.899 Other long term (current) drug therapy
CPT/HCPCS: 36000; 36415; 71045; 80053; 81001; 82550; 83880; 84484; 85025; 85379; 85610; 85730; 93005; 93041; 96365; 96366; 96374; 96375; 99285; 99291; J1644; J2270; A9270-GY

== ENCOUNTER 2023-02-01 16:19 | Emergency (ER) | payer MEDICARE, OTHER ==
[2023-02-01 16:59] VITALS: TEMP 98.4
[2023-02-01] MEDS ORDERED: Sodium Chloride 0.9% 1000 ML 1,000 ML IV STA (17:11)
[2023-02-01] MEDS ORDERED: Sodium Chloride 0.9% 1000 ML 1,000 ML ONE (17:14)
--- NOTE | 2023-02-01 17:21 | ERPHSYRPT ---
- History of Present Illness Historian: patient, other () Exam Limitations: no limitations Patient Subjective Stated Complaint: pt reports nausea/vomiting after taking her first dose of ozempic yesterday. pt states that last evening she started with a headache and felt bad all evening, she began puking this morning and reports that she has passed out a couple times today after vomiting. pt reports that her head still hurts this afternoon and she feels very sick. Triage Nursing Assessment: pt is aox3, afebrile, pt pupils perrl, resps easy and non labored, cap refill < 3 seconds, radial pulses strong and equal. Physician History: 67 yo WF who started 0.25mg Ozempic yesterday presents w N/V/headache/lethargy. She denies diarrhea/melena/hematochezia/ fever/chest pain/abdominal pain/dyspnea/cough. Pt had mild coryza yesterday. PMH includes HTN/CAD/KS. Smoking/drinking denied. Timing/Duration: yesterday Activities at Onset: rest Modifying Factors: Improves With: nothing, vomiting Associated Symptoms: denies symptoms, nausea, vomiting Previous symptoms: no prior history Allergies/Adverse Reactions: ondansetron [From Zofran] Allergy (Verified 02/01/23 16:54) Rash Home Medications: Aspirin 1 tab PO DAILY 10/04/20 [History] Biotin 1 tab PO DAILY 10/04/20 [History] Levothyroxine Sodium [Euthyrox] 1 tab PO DAILY 10/04/20 [History] Amoxicillin/Potassium Clav [Amox Tr-K Clv 875-125 mg Tab] 1 each PO BID 11/04/22 [History] Ferrous Sulfate, Dried [Iron] 65 mg PO DAILY 11/04/22 [History] Ropinirole HCl 0.25 mg PO DAILY PRN 11/04/22 [History] lisinopriL [Zestril] 30 mg PO DAILY 11/04/22 [History] Hx Tetanus, Diphtheria Vaccination/Date Given: No Hx Influenza Vaccination/Date Given: Yes Hx Pneumococcal Vaccination/Date Given: Yes Immunizations Up to Date: Yes Travel Risk - International Travel Have you traveled outside of the country in past 3 weeks: No - Coronavirus Screening Are you exhibiting any of the following symptoms?: No Close contact with a COVID-19 positive Pt in past 14-21 Days: No - Vaccine Status Have you recieved a Covid-19 vaccination: Yes 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 Coater: 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 - Vaccination Dates Date of 2cond Vaccination (if applicable): 07/17/20 - Review of Systems Constitutional: No Symptoms, Lethargy, Malaise Eyes: No Symptoms Ears, Nose, & Throat: No Symptoms Respiratory: No Symptoms Cardiac: No Symptoms Abdominal/Gastrointestinal: No Symptoms, Nausea, Vomiting Genitourinary Symptoms: No Symptoms Musculoskeletal: No Symptoms Skin: No Symptoms Neurological: No Symptoms Psychological: No Symptoms Endocrine: No Symptoms Hematologic/Lymphatic: No Symptoms Immunological/Allergic: No Symptoms - Past Medical History Pertinent Past Medical History: Yes Neurological History: No Pertinent History ENT History: No Pertinent History Cardiac History: Hypertension Respiratory History: No Pertinent History Endocrine Medical History: Hypothyroidism Musculoskeletal History: Osteoarthritis GI Medical History: No Pertinent History History: No Pertinent History Psycho-Social History: No Pertinent History Female Reproductive Disorders: No Pertinent History - Past Surgical History Past Surgical History: Yes Neuro Surgical History: No Pertinent History Cardiac: No Pertinent History Respiratory: No Pertinent History Gastrointestinal: No Pertinent History Genitourinary: No Pertinent History Musculoskeletal: No Pertinent History Female Surgical History: Tubal Ligation Other Surgical History: Breast reduction - Social History Smoking Status: Former smoker Exposure to second hand smoke: Yes Drug Use: none Patient Lives Alone: No - Nursing Vital Signs Nursing Vital Signs: Initial Vital Signs Temperature 98.4 F 02/01/23 16:41 Pulse Rate 106 H 02/01/23 16:41 Respiratory Rate 16 02/01/23 16:41 Blood Pressure 142/92 02/01/23 16:41 O2 Sat by Pulse Oximetry 94 L 02/01/23 16:41 Pain Scale Pain Intensity 2 Tachy/Hypertensive - Physical Exam General Appearance: mild distress Eye Exam: PERRL/EOMI, eyes nml inspection Ears, Nose, Throat Exam: normal ENT inspection, TMs normal, pharynx normal Neck Exam: normal inspection, non-tender, supple, full range of motion, No meningismus, No mass, No Brudzinski, No Kernig's Respiratory Exam: normal breath sounds, lungs clear, airway intact Cardiovascular Exam: tachycardia, capillary refill <2 sec Gastrointestinal/Abdomen Exam: soft, normal bowel sounds, No tenderness Back Exam: normal inspection, normal range of motion, No CVA tenderness Extremity Exam: normal inspection, normal range of motion Neurologic Exam: alert, oriented x 3, cooperative, 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-XII nml as tested, normal mood/affect, nml cerebellar function, nml station & gait, sensation nml, No motor deficits, No sensory deficit Skin Exam: normal color, warm, dry, No rash Lymphatic Exam: No adenopathy SpO2: 94 O2 Delivery: Room Air - Course Nursing assessment & vital signs reviewed: Yes EKG Interpreted by Me: RATE (NSR/Rate 99/normal QT-QTc/No acute ST segment changes) Ordered Tests: Active Orders 24 hr Category Date Time Status EKG-ER Only STAT Care 02/01/23 17:11 Completed IV Insertion STAT Care 02/01/23 17:12 Completed CBC W DIFF Stat Lab 02/01/23 17:15 Completed CMP Stat Lab 02/01/23 17:15 Completed Lactic Acid Stat Lab 02/01/23 17:15 Completed PROTIME WITH INR Stat Lab 02/01/23 17:15 Completed PTT Stat Lab 02/01/23 17:15 Completed TROPONIN Q4H Lab 02/01/23 17:15 Completed UA W/RFX UR CULTURE Stat Lab 02/01/23 17:15 Completed Medication Summary Discontinued Medications Generic Name Dose Route Start Last Admin Trade Name Freq PRN Reason Stop Dose Admin Droperidol 0.625 mg 02/01/23 17:11 02/01/23 17:17 Droperidol 5 Mg/2 Ml Vial IV 02/01/23 17:12 0.625 mg STAT ONE Administration Droperidol Confirm 02/01/23 17:14 Droperidol 5 Mg/2 Ml Vial Administered 02/01/23 17:15 Dose 5 mg .ROUTE .STK-MED ONE Sodium Chloride 1,000 mls @ 999 mls/hr 02/01/23 17:11 02/01/23 18:18 Sodium Chloride 0.9% 1000 Ml IV 02/01/23 18:11 Infused .Q1H1M STA Infusion Sodium Chloride Confirm 02/01/23 17:14 Sodium Chloride 0.9% 1000 Ml Administered 02/01/23 17:15 Dose 1,000 mls @ ud .ROUTE .STK-MED ONE Lab/Rad Data: Laboratory Result Diagrams 02/01/23 17:15 02/01/23 17:15 Laboratory Results 02/01/23 02/01/23 02/01/23 Range/Units 17:20 17:15 17:15 WBC (4.0-10.5) x10^3/uL RBC (4.1-5.4) x10^6/uL Hgb (12.0-16.0) g/dL Hct (35-47) % MCV (78-100) fL MCH (26-32) pg MCHC (32-36) g/dL RDW (11.5-14.0) % Plt Count (150-450) x10^3/uL MPV (7.5-11.0) fL Gran % (36.0-66.0) % Immature Gran % (Auto) (0.00-0.4) % Nucleat RBC Rel Count (0.00-0.1) % Eos # (Auto) (0-0.5) x10^3/uL Immature Gran # (Auto) (0.00-0.03) x10^3u/L Absolute Lymphs (auto) (1.0-4.6) x10^3/uL Absolute Monos (auto) (0.0-1.3) x10^3/uL Absolute Nucleated RBC (0.00-0.01) x10^3u/L Lymphocytes % (24.0-44.0) % Monocytes % (0.0-12.0) % Eosinophils % (0.00-5.0) % Basophils % (0.0-0.4) % Absolute Granulocytes (1.4-6.9) x10^3/uL Basophils # (0-0.4) x10^3/uL PT (9.4-12.5) SECONDS INR (0.8-3.0) APTT (25.1-36.5) SECONDS Sodium (137-145) mmol/L Potassium (3.5-5.1) mmol/L Chloride (98-107) mmol/L Carbon Dioxide (22-30) mmol/L Anion Gap (5-15) MEQ/L BUN (7-17) mg/dL Creatinine (0.52-1.04) mg/dL Estimated GFR ML/MIN Glucose (74-106) mg/dL Lactic Acid 1.1 (0.4-2.0) Calcium (8.4-10.2) mg/dL Total Bilirubin (0.2-1.3) mg/dL AST (14-36) U/L ALT (0-35) U/L Alkaline Phosphatase (38-126) U/L Troponin I (0.000-0.034) ng/mL Serum Total Protein (6.3-8.2) g/dL Albumin (3.5-5.0) g/dL Urine Color Yellow (Yellow) Urine Appearance Clear (Clear) Urine pH 6.5 (4.6-8.0) Ur Specific Union 1.020 (1.005-1.030) Urine Protein Negative (Negative) Urine Glucose (UA) Negative (Negative) mg/dL Urine Ketones Negative (Negative) Urine Blood Negative (Negative) Urine Nitrite Negative (Negative) Urine Bilirubin Negative (Negative) Urine Urobilinogen 1.0 A (0.2) mg/dL Ur Leukocyte Esterase Small A (Negative) U Hyaline Cast (Auto) NONE SEEN (0-2) /LPF Urine Microscopic RBC 0-2 (0-5) /HPF Urine Microscopic WBC 6-10 A (0-5) /HPF Ur Epithelial Cells Few (None Seen) /HPF Urine Bacteria None Seen (None Seen) /HPF Urine Culture Reflexed NO (NO) Influenza Type A Ag NEGATIVE (NEGATIVE) Influenza Type B Ag NEGATIVE (NEGATIVE) RSV (PCR) NEGATIVE (NEGATIVE) SARS-CoV-2 (PCR) POSITIVE A (NEGATIVE) 02/01/23 02/01/23 02/01/23 Range/Units 17:15 17:15 17:15 WBC (4.0-10.5) x10^3/uL RBC (4.1-5.4) x10^6/uL Hgb (12.0-16.0) g/dL Hct (35-47) % MCV (78-100) fL MCH (26-32) pg MCHC (32-36) g/dL RDW (11.5-14.0) % Plt Count (150-450) x10^3/uL MPV (7.5-11.0) fL Gran % (36.0-66.0) % Immature Gran % (Auto) (0.00-0.4) % Nucleat RBC Rel Count (0.00-0.1) % Eos # (Auto) (0-0.5) x10^3/uL Immature Gran # (Auto) (0.00-0.03) x10^3u/L Absolute Lymphs (auto) (1.0-4.6) x10^3/uL Absolute Monos (auto) (0.0-1.3) x10^3/uL Absolute Nucleated RBC (0.00-0.01) x10^3u/L Lymphocytes % (24.0-44.0) % Monocytes % (0.0-12.0) % Eosinophils % (0.00-5.0) % Basophils % (0.0-0.4) % Absolute Granulocytes (1.4-6.9) x10^3/uL Basophils # (0-0.4) x10^3/uL PT 10.9 (9.4-12.5) SECONDS INR 1.00 (0.8-3.0) APTT 28.2 (25.1-36.5) SECONDS Sodium 137 (137-145) mmol/L Potassium 3.8 (3.5-5.1) mmol/L Chloride 103 (98-107) mmol/L Carbon Dioxide 23 (22-30) mmol/L Anion Gap 14.9 (5-15) MEQ/L BUN 12 (7-17) mg/dL Creatinine 0.84 (0.52-1.04) mg/dL Estimated GFR > 60.0 ML/MIN Glucose 117 H (74-106) mg/dL Lactic Acid (0.4-2.0) Calcium 9.4 (8.4-10.2) mg/dL Total Bilirubin 0.30 (0.2-1.3) mg/dL AST 32 (14-36) U/L ALT 31 (0-35) U/L Alkaline Phosphatase 77 (38-126) U/L Troponin I < 0.012 (0.000-0.034) ng/mL Serum Total Protein 7.9 (6.3-8.2) g/dL Albumin 4.2 (3.5-5.0) g/dL Urine Color (Yellow) Urine Appearance (Clear) Urine pH (4.6-8.0) Ur Specific Union (1.005-1.030) Urine Protein (Negative) Urine Glucose (UA) (Negative) mg/dL Urine Ketones (Negative) Urine Blood (Negative) Urine Nitrite (Negative) Urine Bilirubin (Negative) Urine Urobilinogen (0.2) mg/dL Ur Leukocyte Esterase (Negative) U Hyaline Cast (Auto) (0-2) /LPF Urine Microscopic RBC (0-5) /HPF Urine Microscopic WBC (0-5) /HPF Ur Epithelial Cells (None Seen) /HPF Urine Bacteria (None Seen) /HPF Urine Culture Reflexed (NO) Influenza Type A Ag (NEGATIVE) Influenza Type B Ag (NEGATIVE) RSV (PCR) (NEGATIVE) SARS-CoV-2 (PCR) (NEGATIVE) 02/01/23 Range/Units 17:15 WBC 9.2 (4.0-10.5) x10^3/uL RBC 4.50 (4.1-5.4) x10^6/uL Hgb 13.3 (12.0-16.0) g/dL Hct 42.3 (35-47) % MCV 94.0 (78-100) fL MCH 29.6 (26-32) pg MCHC 31.4 L (32-36) g/dL RDW 12.3 (11.5-14.0) % Plt Count 218 (150-450) x10^3/uL MPV 10.5 (7.5-11.0) fL Gran % 83.6 H (36.0-66.0) % Immature Gran % (Auto) 0.3 (0.00-0.4) % Nucleat RBC Rel Count 0.0 (0.00-0.1) % Eos # (Auto) 0.01 (0-0.5) x10^3/uL Immature Gran # (Auto) 0.03 (0.00-0.03) x10^3u/L Absolute Lymphs (auto) 0.43 L (1.0-4.6) x10^3/uL Absolute Monos (auto) 0.97 (0.0-1.3) x10^3/uL Absolute Nucleated RBC 0.00 (0.00-0.01) x10^3u/L Lymphocytes % 4.7 L (24.0-44.0) % Monocytes % 10.6 (0.0-12.0) % Eosinophils % 0.1 (0.00-5.0) % Basophils % 0.7 (0.0-0.4) % Absolute Granulocytes 7.68 H (1.4-6.9) x10^3/uL Basophils # 0.06 (0-0.4) x10^3/uL PT (9.4-12.5) SECONDS INR (0.8-3.0) APTT (25.1-36.5) SECONDS Sodium (137-145) mmol/L Potassium (3.5-5.1) mmol/L Chloride (98-107) mmol/L Carbon Dioxide (22-30) mmol/L Anion Gap (5-15) MEQ/L BUN (7-17) mg/dL Creatinine (0.52-1.04) mg/dL Estimated GFR ML/MIN Glucose (74-106) mg/dL Lactic Acid (0.4-2.0) Calcium (8.4-10.2) mg/dL Total Bilirubin (0.2-1.3) mg/dL AST (14-36) U/L ALT (0-35) U/L Alkaline Phosphatase (38-126) U/L Troponin I (0.000-0.034) ng/mL Serum Total Protein (6.3-8.2) g/dL Albumin (3.5-5.0) g/dL Urine Color (Yellow) Urine Appearance (Clear) Urine pH (4.6-8.0) Ur Specific Union (1.005-1.030) Urine Protein (Negative) Urine Glucose (UA) (Negative) mg/dL Urine Ketones (Negative) Urine Blood (Negative) Urine Nitrite (Negative) Urine Bilirubin (Negative) Urine Urobilinogen (0.2) mg/dL Ur Leukocyte Esterase (Negative) U Hyaline Cast (Auto) (0-2) /LPF Urine Microscopic RBC (0-5) /HPF Urine Microscopic WBC (0-5) /HPF Ur Epithelial Cells (None Seen) /HPF Urine Bacteria (None Seen) /HPF Urine Culture Reflexed (NO) Influenza Type A Ag (NEGATIVE) Influenza Type B Ag (NEGATIVE) RSV (PCR) (NEGATIVE) SARS-CoV-2 (PCR) (NEGATIVE) - Progress Progress: improved Progress Note: 02/01/23 19:42 Nursing note and vital signs reviewed No food or housing insecurities noted Additional history per All lab results reviewed and shared w pt/ 1L NS bolus/0.625mg IV droperidol w improvement Pt w N/V due to CV19/Will start Paxlovid/GFR ok for Paxlovid 02/01/23 19:44 Counseled pt/family regarding: lab results, diagnosis, need for follow-up Medical Desision Making - Independent Historian Additional History obtained from: Spouse - Diagnostic Testing Diagnostic test were ordered, analyzed, and reviewed by me: Yes - Risk of complications The pt has a mod risk of morbidity or mortality based on: Need for prescription drug management - Departure Departure Disposition: Home Clinical Impression: COVID-19, UTI (urinary tract infection) Condition: Stable Critical Care Time: No Referrals: MARCELO MALIK, POLICY ISSUE CLERK [Primary Care Provider] - Follow up/PCP as directed Instructions: Urinary Tract Infection, Adult (DC), COVID-19 (DC) Additional Instructions: Fluids/Rest Quarantine for 5 days Start Paxlovid 3 tablets twice a day for 5 days Macrobid twice a day for Urinary tract infection Return to ER as needed Prescriptions: Nitrofurantoin Macro 100 mg [Macrobid 100MG Capsule] 100 mg PO BID 5 Days #10 cap Nirmatrelvir/Ritonavir [Paxlovid 2X150 mg-100 mg (Eua)] 1 each PO BID 5 Days #30 tablet
[2023-02-01 17:25] LABS: Appearance Clear (Clear); Bacteria None Seen /HPF (None Seen); Bilirubin Negative (Negative); Blood Negative (Negative); Epithelial Cells Few /HPF (None Seen); Glucose, Urine Negative (Negative); Hyaline Casts NONE SEEN /LPF (0-2); Ketones Negative (Negative); Leukocyte Esterase Small (Negative); Nitrite Negative (Negative); Ph 6.5 (4.6-8.0); Protein,Urine Dip Negative (Negative); RBC 0-2 /HPF (0-5)
[2023-02-01 17:29] LABS: Absolute Neutrophil Ct (ANC) 7.68 x10^3/uL (1.4-6.9); BASOPHIL % 0.7 % (0.0-0.4); Basophil (Absolute #) 0.06 x10^3/uL (0-0.4); Eosinophil % 0.1 % (0.00-5.0); Eosinophil (Absolute #) 0.01 x10^3/uL (0-0.5); Hematocrit 42.3 % (35-47); Hemoglobin 13.3 g/dL (12.0-16.0); IMMATURE GRAN # 0.03 x10^3u/L (0.00-0.03); IMMATURE GRAN % 0.3 % (0.00-0.4); Lymphocyte (Absolute #) 0.43 x10^3/uL (1.0-4.6); Lymphocytes % 4.7 % (24.0-44.0); Mean Corpuscular Hemoglobin 29.6 pg (26-32); Mean Corpuscular Hgb Concent. 31.4 g/dL (32-36); Mean Platelet Volume 10.5 fL (7.5-11.0); Monocyte (Absolute #) 0.97 x10^3/uL (0.0-1.3); Monocytes % 10.6 % (0.0-12.0); Neutrophil % 83.6 % (36.0-66.0); Platelet Count 218 x10^3/uL (150-450); Red Cell Distribution Width 12.3 % (11.5-14.0); White Blood Count 9.2 x10^3/uL (4.0-10.5)
[2023-02-01 17:33] LABS: ADD URINE CULTURE? NO (NO)
[2023-02-01 17:56] LABS: ALBUMIN 4.2 g/dL (3.5-5.0); ALKALINE PHOSPHATASE 77 U/L (38-126); ANION GAP 14.9 MEQ/L (5-15); BLOOD UREA NITROGEN 12 mg/dL (7-17); CHLORIDE 103 mmol/L (98-107); Calcium 9.4 mg/dL (8.4-10.2); Carbon Dioxide 23 mmol/L (22-30); Creatinine 1 0.84 mg/dL (0.52-1.04); EST GLOMERULAR FILTRATION RATE > 60.0 ML/MIN; Glucose 117 mg/dL (74-106); Potassium 3.8 mmol/L (3.5-5.1); SGOT/AST 32 U/L (14-36); SGPT/ALT 31 U/L (0-35); SODIUM 137 mmol/L (137-145); Total Protein 7.9 g/dL (6.3-8.2)
[2023-02-01 17:57] LABS: PROTIME 10.9 SECONDS (9.4-12.5); PTT 28.2 SECONDS (25.1-36.5)
[2023-02-01 18:06] LABS: INFLUENZA A NEGATIVE (NEGATIVE); INFLUENZA B NEGATIVE (NEGATIVE); RESPIRATORY SYNCTIAL VIRUS NEGATIVE (NEGATIVE)
[2023-02-01 18:13] LABS: SARS-CoV-2 Xpert Express POSITIVE (NEGATIVE)
[2023-02-01 18:14] VITALS: BP 127/92; PULSE 84; RESP 18
[2023-02-01 18:27] VITALS: O2SAT 94
== END 2023-02-01 18:30 | disposition home or self-care (01) ==
LOC: ED 16:19
DX: U07.1 COVID-19 (principal); N39.0 Urinary tract infection, site not specified; R11.2 Nausea with vomiting, unspecified; R51.9 Headache, unspecified; R53.83 Other fatigue; I10 Essential (primary) hypertension; I25.10 Atherosclerotic heart disease of native coronary artery without angina pectoris; I25.2 Old myocardial infarction; Z79.899 Other long term (current) drug therapy
CPT/HCPCS: 0241U; 36000; 36415; 80053; 81001; 83605; 84484; 85025; 85610; 85730; 93005; 96360; 96374; 99284